=== PATIENT | female | born 1970 | race Caucasian/White ===

== ENCOUNTER 2023-01-10 21:43 | Emergency (ER) | payer MEDICAID, SELFPAY ==
[2023-01-10 22:24] VITALS: BP 166/111; PULSE 116; RESP 18; TEMP 36.3; O2SAT 98
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
== END 2023-01-10 23:28 | disposition home or self-care (01) ==
PROVIDERS: Emergency Provider Family Medicine
DX: K13.79 Other lesions of oral mucosa (principal)
CPT/HCPCS: 99283; 99284